=== PATIENT | male | born 1935 | race Caucasian/White ===

== ENCOUNTER 2018-05-29 14:07 | Inpatient (IN) | payer MEDICAID, MEDICARE, OTHER ==
[~2018-05-29] VITALS: Ht 165.1 cm; Wt 54.4 kg
[2018-05-29 14:10] VITALS: BP 105/47
--- NOTE | 2018-05-29 14:10 | NUR ---
PT BROUGHT TO ED BED 6 BY AMBULANCE. REPORT GIVEN TO KASHMIR KHAN RN AT BEDSIDE.
--- NOTE | 2018-05-29 14:35 | NUR ---
82 YO MALE BIB EMS FROM [facility] FOR TOE DEFORMITIES. PT DENIES N/V/D; SKIN IS INTACT EXCEPT FOR TOE DEFORMITIES TO THE 1ST,2ND AND 5TH TOE ON L FOOT AND 2ND AND 5TH TOE OF R FOOT DISCOLORATION BLACK IN COLOR WITH YELLOW TOENAILS, PINK/WARM/DRY; ALERT TO PERSON NOT PLACE OR TIME, PERRL, LUNGS CLEAR BL, BREATHING UNLABORED; HR EVEN AND REGULAR, BL PERIPHERAL PULSES PRESENT; BS ACTIVE X4, NO TENDERNESS TO PALPATION, NO HEPATOSPLENOMEGALLY PALPATED, RESONANT TO PERCUSSION; PT DENIES ANY FEVER, CP, SOB, OR COUGH AT THIS TIME; 0/10 PAIN AT THIS TIME; VSS; PATIENT POSITIONED FOR COMFORT; HOB ELEVATED; BEDRAILS UP X2; BED DOWN. Addendum: 05/29/18 at 1626 by [email or web address] PT HAS G TUBE INTACT
[2018-05-29] MEDS ORDERED: VITA1TAB44 PO (14:49)
[2018-05-29] MEDS ORDERED: METO25TA PO (14:49)
[2018-05-29] MEDS ORDERED: HUM SUBQ (14:49)
[2018-05-29] MEDS ORDERED: TERA1CAP7 PO (14:49)
[2018-05-29] MEDS ORDERED: SIMV20TA1 PO (14:49)
[2018-05-29] MEDS ORDERED: QUET100T PO (14:49)
[2018-05-29] MEDS ORDERED: LISI-420 PO (14:49)
[2018-05-29] MEDS ORDERED: ERGO500028 PO (14:49)
[2018-05-29] MEDS ORDERED: INSU100S22 SUBQ (14:49)
[2018-05-29] MEDS ORDERED: FERR325E14 GT (14:49)
[2018-05-29] MEDS ORDERED: NITR1PAT TD (14:49)
[2018-05-29] MEDS ORDERED: PANT40EC GT ×2 (14:49→20:46)
[2018-05-29] MEDS ORDERED: METF1000 PO (14:49)
[2018-05-29] MEDS ORDERED: NACL 0.9% 1,000 ML IV ONE (15:10)
[2018-05-29 16:10] LABS: EOSINOPHILS # (AUTO) 0.2 K/uL (0-0.4); HEMATOCRIT 25.3 % (36-52); HEMOGLOBIN 8.2 g/dL (12.0-18.0); MEAN CORPUSCULAR HEMOGLOBIN 27 pg (27-31); MEAN CORPUSCULAR HGB CONC 33 g/dL (33-37); MEAN CORPUSCULAR VOLUME 84.2 fL (80-94); MONOCYTES # (AUTO) 0.5 K/uL (0.8-1.0); NEUTROPHILS # (AUTO) 4.1 K/uL (1.8-7.7); PLATELET COUNT (AUTO) 284 K/uL (140-450); RED CELL DISTRIBUTION WIDTH 15.8 % (11.6-13.7); WHITE BLOOD COUNT (AUTO) 6.5 K/uL (4.8-10.8)
[2018-05-29 16:22] LABS: EOSINOPHILS % (MANUAL) 4 % (0-4); LYMPHOCYTES % (MANUAL) 22 % (20-46); MONOCYTES % (MANUAL) 8 % (5-12)
--- NOTE | 2018-05-29 16:25 | NUR ---
pt. resting comfortably in bed , pt. has g-tube intact and clean. Bed in lowest position. will continue to monitor.
[2018-05-29 16:30] LABS: SODIUM SERUM 133 mmol/L (136-145)
[2018-05-29 16:31] LABS: ANION GAP 12.9 (8-16); CARBON DIOXIDE 28.6 mmol/L (21-32); CHLORIDE 96 mmol/L (98-107); CREATININE 1.3 mg/dL (0.7-1.3); GLUCOSE 126 mg/dL (74-106); POTASSIUM 4.5 mmol/L (3.5-5.1)
[2018-05-29 16:33] LABS: UREA NITROGEN, BLOOD 79 mg/dL (7-18)
--- NOTE | 2018-05-29 16:33 | NUR ---
Denita called from lab with BUN:[id number], edil felder notified.
[2018-05-29 16:35] LABS: PROTHROMBIN TIME 10.4 secs (10.8-13.4)
[2018-05-29] MEDS ORDERED: PIPERACILLIN/TAZOBACTAM 3.375 GM in DEXTROSE 5% 50 ML IV ONE (16:50)
[2018-05-29] MEDS ORDERED: PIPERACILLIN/TAZOBACTAM 3.375 GM VIAL IV ONE (16:58)
--- NOTE | 2018-05-29 17:16 | NUR ---
LAB CALLED TO REPORT LAB VALUE OF LACTIC ACID: [id number]. ER MD HERNANDEZ NOTIFIED.
[2018-05-29 17:55] LABS: APPEARANCE,URINE CLEAR (CLEAR); BILIRUBIN,URINE NEGATIVE (NEGATIVE); BLOOD, URINE NEGATIVE (NEGATIVE); COLOR,URINE YELLOW (YELLOW); LEUKOCYTE ESTERASE ,URINE NEGATIVE (NEGATIVE); NITRITE, URINE NEGATIVE (NEGATIVE); PH,URINE 5.5 (5.0-9.0); UGLUCOSE NEGATIVE (NEGATIVE)
[2018-05-29] MEDS ORDERED: ACETAMINOPHEN 325 MG TAB PO PRN (18:10)
[2018-05-29] MEDS ORDERED: NACL 0.9% 1,000 ML IV SCH (18:10)
[2018-05-29] MEDS ORDERED: ONDANSETRON 4 MG/2 ML VIAL IVP PRN (18:10)
[2018-05-29] MEDS ORDERED: DEXTROSE 50% 50 ML SYR IVP PRN (18:10)
[2018-05-29] MEDS ORDERED: ZOLPIDEM 5 MG TAB PO PRN (18:10)
[2018-05-29] MEDS ORDERED: VANCOMYCIN PER PHARMACY MC PRN (18:10)
--- NOTE | 2018-05-29 18:26 | NUR ---
PT. RESTING COMFORTABLY IN BED, RR EVEN AND UNLABORED. WILL CONTINUE TO MONITOR. BED IN LOWEST POSITION.
--- NOTE | 2018-05-29 18:55 | NUR ---
Patient will be admitted to care of DR. GOMES . Admited to MED SURG . Will go to room 119A. Belongings list completed. Report to ANTHONY AVILES .
--- NOTE | 2018-05-29 19:10 | NUR ---
RECEIVED PATIENT LYING ON BED. RECEIVED REPORT FROM THE CHARGE NURSE. ADMISSION CARE DONE AND CARRY OUT ORDER. NO BELONGINGS REPORTED. CALL LIGHT WITHIN REACH. WILL CONTINUE TO MONITOR.
[2018-05-29] MEDS ORDERED: VANCOMYCIN 1,000 MG VIAL ONE (19:51)
[2018-05-29] MEDS: VANCOMYCIN 1GM/DEXT 5% PREMIX 200 ML IV SCH (20:06)
[2018-05-29] MEDS: BLOOD GLUCOSE MONITORING 1 DEV DEV FS SCH (20:42)
[2018-05-29] MEDS ORDERED: QUET100T GT (20:46)
[2018-05-29] MEDS ORDERED: ERGO500028 GT (20:46)
[2018-05-29] MEDS ORDERED: VITA1TAB44 GT (20:46)
[2018-05-29] MEDS ORDERED: METO25TA GT (20:46)
[2018-05-29] MEDS ORDERED: TERA1CAP7 GT (20:46)
[2018-05-29] MEDS ORDERED: LISI-420 GT (20:46)
[2018-05-29] MEDS ORDERED: METF1000 GT (20:46)
[2018-05-29] MEDS ORDERED: SIMV20TA1 GT (20:46)
[2018-05-29 20:49] LABS: FREE T4 (FREE THYROXINE) 0.95 ng/dL (0.76-1.46); MAGNESIUM 1.5 mg/dL (1.8-2.4); PHOSPHORUS 2.8 mg/dL (2.5-4.9); THYROID STIMULATING HORMONE 2.37 uIU/mL (0.34-3.74)
[2018-05-29] MEDS ORDERED: FERR220E24 GT (20:53)
[2018-05-29] MEDS ORDERED: DOCUSATE SODIUM 100 MG GELCAP PO SCH (21:00)
--- NOTE | 2018-05-29 21:00 | NUR ---
MEDICATION GIVEN . V/S TAKEN AND RECORDED. SLIDING BS TAKEN NO COVERAGE. NO S/S OF DISTRESS NOTED AT THIS TIME. CALL LIGHT WITHIN REACH. WILL CONTINUE TO MONITOR.
[2018-05-29] MEDS ORDERED: MAGN400S60 PO (21:06)
[2018-05-29] MEDS ORDERED: FLEPED RC (21:06)
[2018-05-29] MEDS ORDERED: BISA-213 RC (21:06)
[2018-05-29] MEDS ORDERED: SODIUM PHOSPHATE PEDIATRIC 67.5 ML ENEM RC PRN (21:10)
[2018-05-29] MEDS ORDERED: BISACODYL 10 MG SUPP RC PRN (21:10)
[2018-05-29] MEDS ORDERED: MAGNESIUM HYDROXIDE 2400 MG/30 ML UDC PO SCH (21:10)
[2018-05-29] MEDS ORDERED: SODIUM FERRIC GLUCONATE 125 MG in NACL 0.9% 100 ML IV SCH (21:45)
[2018-05-29] MEDS: DOCUSATE 100 MG/10 ML UDC GT SCH (21:55)
[2018-05-29] MEDS ORDERED: MAG SULF 2000 MG/WATER PREMIX 100 ML IV SCH (22:00)
[2018-05-29] MEDS ORDERED: ALBUTEROL SULFATE/IPRATROPIU 3 ML SOL IH PRN (22:10)
[2018-05-29] MEDS ORDERED: NACL 0.9% IRR 250 ML BOTTLE IR PRN (22:10)
[2018-05-29] MEDS: DEXT 5% / NACL 0.9% 500 ML IV SCH (22:59)
[2018-05-30] VITALS: BP 131/60
--- NOTE | 2018-05-30 01:05 | NUR ---
SEEN PATIENT ASLEEP ON BED. NO S/S OF DISTRESS NOTED AT THIS TIME. FALL PRECAUTION APPLIED. CALL LIGHT WITHIN REACH. WILL CONTINUE TO MONITOR.
--- NOTE | 2018-05-30 02:15 | NUR ---
KEEP PRESSURE OFF TOE WITH HEEL PROTECTOR IN PLACE. POSITIONED PATIENT IN COMFORTABLE POSITION. NO S/S OF DISTRESS NOTED AT THIS TIME. WILL CONTINUE TO MONITOR.
[2018-05-30] MEDS: DEXT 5% / NACL 0.9% 500 ML IV SCH ×2 (03:10→08:57)
--- NOTE | 2018-05-30 04:18 | NUR ---
CHECKED PATIENT ASLEEP COMFORTABLE ON BED. ALL NEEDS ATTENDED. NO S/S OF DISTRESS NOTED. CALL LIGHT WITHIN REACH. WILL CONTINUE TO MONITOR.
--- NOTE | 2018-05-30 05:22 | NUR ---
RESIDENT NOTIFIED ABOUT DRESSING CHANGE. NO ORDER MADE. HE WILL ENDORSE TO AM SHIFT RESIDENT.
[2018-05-30 06:24] LABS: BASOPHILS % (AUTO) 0.4 % (0.0-2.0); EOSINOPHILS # (AUTO) 0.2 K/uL (0-0.4); EOSINOPHILS % (AUTO) 2.3 % (0.0-4.0); HEMATOCRIT 27.1 % (36-52); HEMOGLOBIN 8.9 g/dL (12.0-18.0); LYMPHOCYTES # (AUTO) 1.1 K/uL (2.0-11.5); LYMPHOCYTES % (AUTO) 17.2 % (20.5-51.1); MEAN CORPUSCULAR HEMOGLOBIN 28 pg (27-31); MEAN CORPUSCULAR HGB CONC 33 g/dL (33-37); MEAN CORPUSCULAR VOLUME 83.4 fL (80-94); MONOCYTES # (AUTO) 0.4 K/uL (0.8-1.0); MONOCYTES % (AUTO) 6.9 % (1.7-9.3); NEUTROPHILS # (AUTO) 4.7 K/uL (1.8-7.7); NEUTROPHILS % (AUTO) 73.2 % (42.2-75.2); PLATELET COUNT (AUTO) 303 K/uL (140-450); RED BLOOD CELL COUNT(AUTO) 3.25 MIL/uL (4.20-6.10); WHITE BLOOD COUNT (AUTO) 6.5 K/uL (4.8-10.8)
--- NOTE | 2018-05-30 06:45 | NUR ---
PATIENT REFUSED FINGERSTICK.
[2018-05-30 06:53] LABS: ALBUMIN 2.7 g/dL (3.4-5.0); ANION GAP 12.8 (8-16); ASPARTATE AMINOTRANSFERASE 14 U/L (15-37); CARBON DIOXIDE 29.1 mmol/L (21-32); CHLORIDE 102 mmol/L (98-107); CHOL/HDL RATIO 3.2 (1-4.5); GLUCOSE 191 mg/dL (74-106); HDL CHOLESTEROL 33 mg/dL (40-60); LDL (CALC) 58 mg/dL (60-100); MAGNESIUM 2.8 mg/dL (1.8-2.4); PHOSPHORUS 3.2 mg/dL (2.5-4.9); POTASSIUM 4.9 mmol/L (3.5-5.1); SODIUM SERUM 139 mmol/L (136-145); TOTAL BILIRUBIN 0.3 mg/dL (0.0-1.0); TRIGLYCERIDES 68 mg/dL (30-150); UREA NITROGEN, BLOOD 57 mg/dL (7-18)
--- NOTE | 2018-05-30 07:15 | NUR ---
RECEIVED PATIENT REPORT AT BEDSIDE. PATIENT AWAKE IN BED. NO S/S OF DISTRESS. PATIENT ON ROOM AIR NO SOB. WOUNDS NOTED TO BILATERAL FEET. NO DRAINAGE NOTED. HEEL RAISERS IN PLACE. PATIENT ON TELE MONITORING. BED LOWERED WITH CALL LIGHT WITHIN REACH. WILL CONTINUE TO MONITOR
--- NOTE | 2018-05-30 07:20 | NUR ---
ENDORSEMENT GIVEN AT BEDSIDE TO AM SHIFT NURSE FOR CONTINUITY OF CARE. PATIENT IN STABLE CONDITION.
[2018-05-30 08:00] VITALS: BP 155/58
--- NOTE | 2018-05-30 08:00 | NUR ---
PATIENT BEING EVALUATED BY DR ASHTON
[2018-05-30] MEDS: BLOOD GLUCOSE MONITORING 1 DEV DEV FS SCH ×4 (08:57→20:19)
[2018-05-30] MEDS: NACL 0.9% IRR 250 ML BOTTLE IR SCH (09:00)
[2018-05-30] MEDS: NITROGLYCERIN 0.2 MG/HR PATCH TD SCH (09:00)
[2018-05-30] MEDS: SODIUM FERRIC GLUCONATE 125 MG in NACL 0.9% 100 ML IV SCH (09:01)
[2018-05-30] MEDS: DOCUSATE 100 MG/10 ML UDC GT SCH ×2 (09:02→20:07)
[2018-05-30] MEDS: FERROUS SULFATE 300 MG/5 ML UDC GT SCH ×2 (09:02→20:07)
[2018-05-30] MEDS: VIT-B COMP/VIT-C/FOLIC ACID 1 TAB GT SCH (09:02)
[2018-05-30] MEDS: QUEtiapine FUMARATE 100 MG TAB GT SCH ×2 (09:02→20:07)
[2018-05-30] MEDS: METOPROLOL 25 MG TAB GT SCH ×2 (09:03→20:07)
[2018-05-30] MEDS: TERAZOSIN 1 MG CAP GT SCH ×2 (09:03→20:08)
[2018-05-30] MEDS: FAMOTIDINE 20 MG TAB GT SCH (09:03)
[2018-05-30] MEDS: LISINOPRIL 20 MG TAB GT SCH (09:03)
[2018-05-30] MEDS: INSULIN LISPRO SLIDING SCALE 100 UNITS/ML VIAL SUBQ PRN ×4 (09:18→21:01)
--- NOTE | 2018-05-30 10:23 | NUR ---
FAXED INITIAL ER REPORT, H&P, CONSULT, PROGRESS NOTES, XRAY, MED SHEET AND ADMIT ORDER TO [facility] [phone] PHONE [phone] X [phone] RITA
--- NOTE | 2018-05-30 10:31 | NUR ---
PATIENT HAS BEEN SCREENED AND CATEGORIZED HIGH NUTRITION RISK. PATIENT WILL BE SEEN WITHIN 1-2 DAYS OF ADMISSION. 05/30/18 05/31/[address]
[2018-05-30] MEDS ORDERED: MAGNESIUM HYDROXIDE 2400 MG/30 ML UDC PO PRN (11:25)
[2018-05-30] MEDS: DEXT 5% /NACL 0.9% 1,000 ML IV SCH ×2 (11:27→20:06)
[2018-05-30] MEDS ORDERED: SODIUM PHOSPHATE 118 ML ENEM RC PRN (11:29)
[2018-05-30 12:25] LABS: FERRITIN 212 ng/mL (30-400); FOLIC ACID > 20.00 ng/mL (>3.0)
--- NOTE | 2018-05-30 12:28 | NUR ---
WOUND CARE NOTE: PT. SEEN BY PODIATRY THIS AM, WOUND TREATMENT DONE ORDERED, ENDORSE TO PRIMARY RN. LEFT HALLUX ,2ND AND 5TH TOES AND RIGHT 2ND TOE GANGRENE NOTED. Addendum: 05/30/18 at 1238 by Jeanne Bridges RN (Grace) Will continue to follow Dr. Hale order: Wound care to change dressings daily and apply betadine on left gangrenous toes and on right 2nd toe wound with gauze and light augie. Addendum: 06/02/18 at 1116 by Jeanne Bridges RN (Grace) LATE ENTRY FOR 05/30/2018, SKIN ASSESSMENT NO REDNESS, NO S/S PRESSURE INJURY NOTICE AT THIS TIME.
--- NOTE | 2018-05-30 15:05 | NUR ---
PATIENT ASLEEP IN BED. NO S/S OF DISTRESS NOTED
--- NOTE | 2018-05-30 15:13 | NUR ---
05/30/18 RD INITIAL ASSESSMENT COMPLETED PLEASE REFER TO NUTRITION ASSESSMENT UNDER CARE ACTIVITY FOR ESTIMATED NUTRITIONAL NEEDS. 1. WHEN/IF MEDICALLY STABLE TO BEGIN NUTRITION, CONSIDER ADVANCE TF TOLERATED TO GLUCERNA 1.2 @GOAL RATE 70ML/H WITH 150ML H2O FLUSH Q4H -THIS PROVIDES 2016 KCAL (100% ESTIMATED ENERGY NEEDS), 100 GM PROTEIN (100% ESTIMATED PROTEIN NEEDS), AND 1952.4 ML FLUID (100% ESTIMATED FLUID NEEDS) 2. RECOMMEND VITAMIN C 0429-1437 MG/D TO ASSIST WITH WOUND HEALING 3. RECOMMEND 1 PKT ROSE QD TO ASSIST WITH WOUND HEALING 4. RD TO FOLLOW-UP 2-3 DAYS, HIGH RISK JULIANNE MAE RD
[2018-05-30 16:00] VITALS: BP 157/65
--- NOTE | 2018-05-30 19:45 | NUR ---
PATIENT REPORT GIVEN AT BEDSIDE. PATIENT ENDORSED IN STABLE CONDITION
--- NOTE | 2018-05-30 19:50 | NUR ---
RECEIVED PATIENT LYING COMFORTABLE ON BED. FALL PRECAUTION APPLIED .THERABOOT IN PLACE IN BLE . LEFT FOOT WRAP WITH KERLIX DRESSING ORDERED. HEELS OFF LOAD FOR PRESSURE. G-T IN PLACE FOR MEDICATION ACCESS. BED ALARM ON. CALL LIGHT WITHIN REACH.
[2018-05-30] MEDS: VANCOMYCIN 1GM/DEXT 5% PREMIX 200 ML IV SCH (20:05)
[2018-05-30] MEDS: SIMVASTATIN 20 MG TAB GT SCH (20:08)
[2018-05-30] MEDS: INSULIN LANTUS 100 UNITS/ML 10 ML VIAL SUBQ SCH (21:00)
[2018-05-30] MEDS ORDERED: NON-FORMULARY ITEM (Insulin Glargine,Hum.rec.anlog (Lantus Solostar) 10 UNIT) SUBQ SCH (21:00)
--- NOTE | 2018-05-30 21:00 | NUR ---
BS TAKEN AND RECORDED. INSULIN GIVEN ORDERED. MEDICATION GIVEN THROUGH G- TUBE AND PLACE IN SEMI POSITION. MEDICATION TOLERATED WELL. NO S/ S OF DISTRESS NOTED AT THIS TIME. CALL LIGHT WITHIN REACH.WILL CONTINUE TO MONITOR.
[2018-05-31] VITALS: BP 149/65
--- NOTE | 2018-05-31 | NUR ---
V/S TAKEN AND RECORDED. PATIENT CLEANED AND REPOSITIONED TO HIS SIDE TO MAINTAIN SKIN INTEGRITY. OFF LOAD FOOT FOR PRESSURE. NO S/ S OF DISTRESS NOTED AT THIS TIME. CALL LIGHT WITHIN REACH. WILL CONTINUE TO MONITOR.
--- NOTE | 2018-05-31 02:30 | NUR ---
REPOSITIONED PATIENT AND PLACE IN COMFORTABLE POSITION. FALL PRECAUTION APPLIED. PATIENT BACK TO SLEEP. CALL LIGHT WITHIN REACH.
[2018-05-31] MEDS: NACL 0.9% 1,000 ML IV SCH (05:46)
[2018-05-31] MEDS: INSULIN LISPRO SLIDING SCALE 100 UNITS/ML VIAL SUBQ PRN ×3 (06:05→22:02)
[2018-05-31] MEDS: BLOOD GLUCOSE MONITORING 1 DEV DEV FS SCH ×4 (06:22→22:00)
--- NOTE | 2018-05-31 07:15 | NUR ---
ENDORSEMENT GIVEN AT BEDSIDE TO AM SHIFT NURSE FOR CONTINUITY OF CARE. PATIENT IN STABLE CONDITION.
--- NOTE | 2018-05-31 07:15 | NUR ---
RECEIVED PATIENT REPORT AT BEDSIDE. PATIENT AWAKE WITH NO S/S OF DISTRESS. PATIENT ON ROOM AIR. WOUND DRESSING NOTED TO THE LOWER EXTREMITY. DRESSING CLEAN DRY AND INTACT. HEEL RAISERS IN PLACE. G-TUBE FEEDING IN PLACE WITH TUBE FEEDING RUNNING. BED LOWERED WITH CALL LIGHT WITHIN REACH. WILL CONTINUE TO MONITOR
[2018-05-31 07:38] VITALS: BP 150/63
[2018-05-31] MEDS: DOCUSATE 100 MG/10 ML UDC GT SCH ×2 (08:08→21:54)
[2018-05-31] MEDS: FERROUS SULFATE 300 MG/5 ML UDC GT SCH ×2 (08:08→21:53)
[2018-05-31] MEDS: VIT-B COMP/VIT-C/FOLIC ACID 1 TAB GT SCH (08:08)
[2018-05-31] MEDS: QUEtiapine FUMARATE 100 MG TAB GT SCH ×2 (08:09→21:56)
[2018-05-31] MEDS: TERAZOSIN 1 MG CAP GT SCH ×2 (08:09→21:53)
[2018-05-31] MEDS: LISINOPRIL 20 MG TAB GT SCH (08:10)
[2018-05-31] MEDS: METOPROLOL 25 MG TAB GT SCH ×2 (08:10→21:55)
[2018-05-31] MEDS: FAMOTIDINE 20 MG TAB GT SCH (08:10)
--- NOTE | 2018-05-31 08:15 | NUR ---
SCHEDULED MEDICATIONS ADMINISTERED. NO RESIDUALS NOTED. PATIENT TOLERATED WELL. WILL CONTINUE TO MONITOR
[2018-05-31] MEDS: NITROGLYCERIN 0.2 MG/HR PATCH TD SCH (09:00)
[2018-05-31] MEDS: NACL 0.9% IRR 250 ML BOTTLE IR SCH (09:35)
[2018-05-31] MEDS: SODIUM FERRIC GLUCONATE 125 MG in NACL 0.9% 100 ML IV SCH (09:36)
[2018-05-31 11:48] VITALS: BP 149/62
--- NOTE | 2018-05-31 11:49 | NUR ---
PATIENT AWAKE IN BED. NO S/S OF DISTRESS NOTED. PATIENT'S DAUGHTER PRESENT AT BEDSIDE
[2018-05-31] MEDS ORDERED: HYDROcodone/APAP 5/325 MG 1 TAB TAB PO PRN (15:55)
[2018-05-31 16:00] VITALS: BP 130/50
[2018-05-31] MEDS: CHLORHEXADINE GLUC 2% CLOTH TP SCH (16:00)
[2018-05-31] MEDS: MUPIROCIN CA NASAL 2% 1GM TUBE NS SCH (17:05)
--- NOTE | 2018-05-31 18:46 | NUR ---
PATIENT ASLEEP IN BED. NO S/S OF DISTRESS NOTED
--- NOTE | 2018-05-31 19:20 | NUR ---
PATIENT REPORT GIVEN AT BEDSIDE. PATIENT ENDORSED IN STABLE CONDITION
--- NOTE | 2018-05-31 19:24 | NUR ---
RECEIVED PT FROM JOLIE RN PT RESTING ON BED GREEK SPEAKER AAOX1 IV ON LEFT FA INFUSIGN WELL G TUBE FEEDING WELL TOLERATED REPOSITIONED NOT DISRESS NOTED
[2018-05-31] MEDS: VANCOMYCIN 1GM/DEXT 5% PREMIX 200 ML IV SCH (19:44)
[2018-05-31 20:00] VITALS: BP 148/54
--- NOTE | 2018-05-31 21:30 | NUR ---
BLOOD SUGAR TEST 177 COVERAGE WITH 2 UNITS SUBQ HUMALO FOLLOW ROTOCOL
[2018-05-31] MEDS: SIMVASTATIN 20 MG TAB GT SCH (21:55)
[2018-05-31] MEDS: INSULIN LANTUS 100 UNITS/ML 10 ML VIAL SUBQ SCH (22:00)
[2018-06-01] VITALS: BP 153/60
--- NOTE | 2018-06-01 | NUR ---
SPONGE BATH GIVEN LINEN CHANGED REPOSITIONED Q2H NOT DISTRESS NOTED
--- NOTE | 2018-06-01 03:00 | NUR ---
A NEW IV ON RT FA IS INSERTED GAUGE #22 IV FLUIDS INFUSING WELL
--- NOTE | 2018-06-01 05:00 | NUR ---
PT HAS A BIG BM ANOTHER SPONGE BATH GIVEN LINEN CHANGED G TUBE FEEDING WEL TOLERATED IV ON RT FA INFUSING WELL
[2018-06-01] MEDS: NACL 0.9% 1,000 ML IV SCH ×2 (05:25→16:41)
[2018-06-01] MEDS: BLOOD GLUCOSE MONITORING 1 DEV DEV FS SCH ×4 (05:58→21:00)
--- NOTE | 2018-06-01 05:59 | NUR ---
BLOOD SUGAR TEST 117
--- NOTE | 2018-06-01 06:38 | NUR ---
PT BEDBOUND NOT DISTRESS NOTED IV INFUSING WELL ON RT FA AND G TUBE FEEDING WELL TOLERATED ZERO RESIDUAL AT THIS TIME
[2018-06-01 07:37] VITALS: BP 152/71
[2018-06-01 07:37] LABS: BASOPHILS % (AUTO) 0.3 % (0.0-2.0); EOSINOPHILS # (AUTO) 0.1 K/uL (0-0.4); EOSINOPHILS % (AUTO) 1.7 % (0.0-4.0); HEMOGLOBIN 9.1 g/dL (12.0-18.0); LYMPHOCYTES # (AUTO) 1.3 K/uL (2.0-11.5); MEAN CORPUSCULAR HEMOGLOBIN 27 pg (27-31); MEAN CORPUSCULAR HGB CONC 33 g/dL (33-37); MONOCYTES # (AUTO) 0.5 K/uL (0.8-1.0); NEUTROPHILS # (AUTO) 4.6 K/uL (1.8-7.7); PLATELET COUNT (AUTO) 297 K/uL (140-450); RED BLOOD CELL COUNT(AUTO) 3.33 MIL/uL (4.20-6.10); WHITE BLOOD COUNT (AUTO) 6.6 K/uL (4.8-10.8)
[2018-06-01 07:57] LABS: CARBON DIOXIDE 29.5 mmol/L (21-32); CHLORIDE 105 mmol/L (98-107); CREATININE 0.8 mg/dL (0.7-1.3); GLUCOSE 160 mg/dL (74-106); POTASSIUM 4.5 mmol/L (3.5-5.1); SODIUM SERUM 141 mmol/L (136-145); UREA NITROGEN, BLOOD 14 mg/dL (7-18)
[2018-06-01 08:01] LABS: MAGNESIUM 1.5 mg/dL (1.8-2.4); PHOSPHORUS 3.1 mg/dL (2.5-4.9)
[2018-06-01] MEDS: VIT-B COMP/VIT-C/FOLIC ACID 1 TAB GT SCH (08:50)
[2018-06-01] MEDS: FAMOTIDINE 20 MG TAB GT SCH (08:50)
[2018-06-01] MEDS: FERROUS SULFATE 300 MG/5 ML UDC GT SCH ×2 (08:51→22:05)
[2018-06-01] MEDS: METOPROLOL 25 MG TAB GT SCH ×2 (08:51→22:04)
[2018-06-01] MEDS: LISINOPRIL 20 MG TAB GT SCH (08:51)
[2018-06-01] MEDS: TERAZOSIN 1 MG CAP GT SCH ×2 (08:51→22:05)
[2018-06-01] MEDS: QUEtiapine FUMARATE 100 MG TAB GT SCH ×2 (08:51→22:04)
--- NOTE | 2018-06-01 08:51 | NUR ---
SCHEDULED MEDICATIONS ADMINISTERED. NO RESIDUALS NOTED. PATIENT TOLERATED WELL. WILL CONTINUE TO MONITOR
[2018-06-01] MEDS: SODIUM FERRIC GLUCONATE 125 MG in NACL 0.9% 100 ML IV SCH (08:53)
[2018-06-01] MEDS: NITROGLYCERIN 0.2 MG/HR PATCH TD SCH (09:00)
[2018-06-01] MEDS: DOCUSATE 100 MG/10 ML UDC GT SCH ×2 (09:00→22:05)
[2018-06-01] MEDS: NACL 0.9% IRR 250 ML BOTTLE IR SCH (09:25)
[2018-06-01] MEDS ORDERED: MAG SULF 2000 MG/WATER PREMIX 50 ML IV ONE (09:35)
[2018-06-01] MEDS ORDERED: HYDROcodone/APAP 5/325 MG 1 TAB TAB PO SCH (09:44)
--- NOTE | 2018-06-01 09:48 | NUR ---
PATIENT GIVEN BED BATH. PATIENT TURNED AND REPOSITIONED FOR COMFORT. PATIENT TOLERATED WELL
[2018-06-01] MEDS: MAGNESIUM SULFATE 1GM in DEXTROSE 5% 100 ML PREMIX IV SCH ×2 (10:37→11:48)
[2018-06-01] MEDS: HYDROcodone/APAP 5/325 MG 1 TAB TAB PO SCH ×2 (12:00→17:54)
[2018-06-01] MEDS: INSULIN LISPRO SLIDING SCALE 100 UNITS/ML VIAL SUBQ PRN ×2 (12:29→16:52)
[2018-06-01] MEDS ORDERED: VANCOMYCIN 1GM/DEXT 5% PREMIX 200 ML IV SCH (14:00)
[2018-06-01 16:00] VITALS: BP 149/57
--- NOTE | 2018-06-01 16:00 | NUR ---
SPOKE TO REMINGTON AT [facility]. PER REMINGTON, PATIENT CAN GO TO ROOM 111A
[2018-06-01] MEDS: MUPIROCIN CA NASAL 2% 1GM TUBE NS SCH (16:46)
[2018-06-01] MEDS: CHLORHEXADINE GLUC 2% CLOTH TP SCH (16:52)
--- NOTE | 2018-06-01 16:53 | NUR ---
CALLED [facility] FOR TRANSPORT AUTHORIZATION ,GAVE ME A NUMBER TO CONTACT WITH [facility] [phone] SPOKE WITH THE DISPATCHER AND AIRPORT SCREENER TIME WILL BE WITH IN 2 HOURS.
--- NOTE | 2018-06-01 19:13 | NUR ---
PATIENT REPORT GIVEN AT BEDSIDE. PATIENT ENDORSED IN STABLE CONDITION
--- NOTE | 2018-06-01 19:14 | NUR ---
REPORT RECEIVED FROM AM NURSE AT BEDSIDE. PT IN STABLE CONDITION. AAOX1. INTRODUCED SELF TO PT AND BOARD UPDATED. IV SITE PATENT AND INTACT. SKIN WARM, DRY, AND NOT INTACT DUE TO CELLULITIS TO LOWER BLE. PT TO BE DISCHARGED BY 1900. DC PAPERWORK ALL DONE BY AM NURSE. COSIGNED ALL PAPERWORK. BED LOCKED IN LOW POSITION. CALL MARTINEZ WITHIN REACH.
--- NOTE | 2018-06-01 19:37 | NUR ---
CALLED [facility] AGAIN TO CHECK THE CONSULTING SENIOR PRACTICE DIRECTOR TIME THE DISPATCHER WILL CALL BACK
--- NOTE | 2018-06-01 20:30 | NUR ---
[facility] CALLED FOR PT PICKUP. PICKUP TIME ORIGINALLY 1900. NEW PICKUP TIME 2300.
--- NOTE | 2018-06-01 22:00 | NUR ---
[facility] CALLED. STATED THAT THEY WILL NOT BE ABLE TO INFORMATION BROKER PT. TOLD TO CALL THEM AT 0600 TO ATTEMPT THE TRANSFER AGAIN.
[2018-06-01] MEDS: SIMVASTATIN 20 MG TAB GT SCH (22:04)
--- NOTE | 2018-06-01 22:05 | NUR ---
COLACE, FERROUS SULFATE, TERAZOSIN, LOPRESSOR, SEROQUEL, AND ZOCOR GIVEN THROUGH GTUBE. BS 146. NO HUMALOG COVERAGE NEEDED. LANTUS 10 UNITS GIVEN. PT TOLERATED WELL.
[2018-06-01] MEDS: INSULIN LANTUS 100 UNITS/ML 10 ML VIAL SUBQ SCH (22:07)
--- NOTE | 2018-06-01 22:15 | NUR ---
[facility] CALLED AND TALKED W/NAA CRUZ PT'S NURSE AND TOLD THEY CAN NOT COME AND MEDICAL ASST PT TO NIGHT.INFORMED DIXON CRUZ FLUTE GRINDER.SHE IS WORKING ON THAT.
--- NOTE | 2018-06-01 22:19 | NUR ---
TALKED TO [facility] [phone] TALKED TO DAVID, HE SAID UNABLE TO ORTHODONTIC TREATMENT COORDINATOR PT AT THIS TIME DUE TO DISPATCH DIFFICULTY WITH AFFILIATE AND WILL NEED TO FOLLOW UP TOMORROW AROUND 0600
[2018-06-02] VITALS: BP 157/65
[2018-06-02] MEDS: HYDROcodone/APAP 5/325 MG 1 TAB TAB PO SCH ×2 (00:12→05:21)
--- NOTE | 2018-06-02 00:12 | NUR ---
NORCO GIVEN. PT TOLERATED WELL. NEW FEEDING PLACED. ROSE MIXED WITH WATER AND GIVE THROUGH GTUBE. WILL CONTINUE TO MONITOR. Addendum: 06/02/18 at 0333 by Farooq Yee RN RESIDUAL OF 60ML. FEEDING TO BE CONTINUED.
--- NOTE | 2018-06-02 02:45 | NUR ---
PT SLEEPING COMFORTABLY IN BED WITH HEAD AND FACE COVERED. NO S/S OF DISTRESS NOTED. WILL CONTINUE TO MONITOR.
[2018-06-02] MEDS: NACL 0.9% 1,000 ML IV SCH (04:11)
[2018-06-02] MEDS: BLOOD GLUCOSE MONITORING 1 DEV DEV FS SCH (05:20)
--- NOTE | 2018-06-02 05:21 | NUR ---
NORCO GIVEN. PT TOLERATED WELL. BS 150. NO INSULIN COVERAGE NEEDED.
--- NOTE | 2018-06-02 06:00 | NUR ---
CALLED [facility] AT [phone]. TALKED TO SHY AND ANOTHER LAMP CLEANER. BOTH SAID THAT THE TRANSPORT VEHICLE IS [facility] IS SETUP TO PICKUP AT 1000AM ON 06/02/18. BOTH CALLED TO VERIFY AND LEFT ME ON HOLD FOR OVER 10 MINUTES.
[2018-06-02 06:17] LABS: BASOPHILS % (AUTO) 0.2 % (0.0-2.0); EOSINOPHILS # (AUTO) 0.1 K/uL (0-0.4); EOSINOPHILS % (AUTO) 2.4 % (0.0-4.0); HEMATOCRIT 27.7 % (36-52); LYMPHOCYTES # (AUTO) 1.2 K/uL (2.0-11.5); LYMPHOCYTES % (AUTO) 22.5 % (20.5-51.1); MEAN CORPUSCULAR HEMOGLOBIN 28 pg (27-31); MEAN CORPUSCULAR HGB CONC 33 g/dL (33-37); MEAN CORPUSCULAR VOLUME 85.1 fL (80-94); MONOCYTES # (AUTO) 0.4 K/uL (0.8-1.0); MONOCYTES % (AUTO) 8.4 % (1.7-9.3); NEUTROPHILS # (AUTO) 3.5 K/uL (1.8-7.7); NEUTROPHILS % (AUTO) 66.5 % (42.2-75.2); PLATELET COUNT (AUTO) 281 K/uL (140-450); RED BLOOD CELL COUNT(AUTO) 3.25 MIL/uL (4.20-6.10); WHITE BLOOD COUNT (AUTO) 5.2 K/uL (4.8-10.8)
[2018-06-02 06:55] LABS: ANION GAP 10.4 (8-16); CARBON DIOXIDE 30.4 mmol/L (21-32); CHLORIDE 104 mmol/L (98-107); GLUCOSE 164 mg/dL (74-106); POTASSIUM 4.8 mmol/L (3.5-5.1); SODIUM SERUM 140 mmol/L (136-145); UREA NITROGEN, BLOOD 21 mg/dL (7-18)
--- NOTE | 2018-06-02 07:00 | NUR ---
REPORT GIVEN TO AM NURSE AT BEDSIDE. PT IN STABLE CONDITION. ENDORSED TRANSFER OF PT.
--- NOTE | 2018-06-02 07:01 | NUR ---
RECEIVED REPORT FROM ELECTRO MECHANICAL DESIGNER NURSE AT BEDSIDE FOR CONTINUITY OF CARE. PT IS TO GO BACK TO [facility] YESTERDAY BUT TRANSPORTATION ISSUES. WILL BE SCHEDULED TO LEAVE TODAY. PT IS AOX1 OR 2. BEDBOUND. PT HAS A SLIGHT COUGH, NON PRODUCTIVE. SKIN -BILATERAL FEET ESCHAR. PICTURES TAKEN. GTUBE- 70ML/HR, WATER FLUSH 100ML Q 4H. IV ON R WRIST 22G NS AT 60ML. V/S WITHIN NORMAL RANGE. BP SLIGHTLY ELEVATED. D/C IS COMPLETE. REPORT GIVEN TO FACILITY. JUST WAITING FOR TRANSPORT SET UP. WILL CONTINUE TO MONITOR PT.
[2018-06-02] MEDS ORDERED: CHLO118S2 TP (07:58)
[2018-06-02] MEDS ORDERED: BACTNA NS (07:58)
[2018-06-02 08:00] VITALS: BP 166/67
--- NOTE | 2018-06-02 08:46 | NUR ---
PER FAX OF 05/30/18 FROM RITA Moya RN FROM [facility] ADMIT OF 05/29/18 APPROVED PER DRG. NRD 06/05/18 TO INCLUDE UPDATED PROGRESS NOTE FOR NRD DOS. DO NOT FAX DAILY CLINICAL DOCUMENTS/REVIEW. FAX D/C SUMMARY UPON DISCHARGE. RITA [phone] EXT [phone]
[2018-06-02] MEDS: DOCUSATE 100 MG/10 ML UDC GT SCH (09:30)
[2018-06-02] MEDS: FERROUS SULFATE 300 MG/5 ML UDC GT SCH (09:30)
--- NOTE | 2018-06-02 09:30 | NUR ---
SPOKE TO DR. CHU, AND REMIND HIM OF DR. ASHTON'S WOUND ORDERS TO INCLUDING TO DISCHARGE INSTRUCTIONS.
[2018-06-02] MEDS: VIT-B COMP/VIT-C/FOLIC ACID 1 TAB GT SCH (09:31)
[2018-06-02] MEDS: QUEtiapine FUMARATE 100 MG TAB GT SCH (09:31)
[2018-06-02] MEDS: FAMOTIDINE 20 MG TAB GT SCH (09:31)
[2018-06-02] MEDS: METOPROLOL 25 MG TAB GT SCH (09:31)
[2018-06-02] MEDS: TERAZOSIN 1 MG CAP GT SCH (09:31)
[2018-06-02] MEDS: LISINOPRIL 20 MG TAB GT SCH (09:32)
[2018-06-02] MEDS: NITROGLYCERIN 0.2 MG/HR PATCH TD SCH (09:33)
[2018-06-02] MEDS: SODIUM FERRIC GLUCONATE 125 MG in NACL 0.9% 100 ML IV SCH (09:33)
[2018-06-02] MEDS: NACL 0.9% IRR 250 ML BOTTLE IR SCH (09:34)
--- NOTE | 2018-06-02 09:59 | NUR ---
ADMINISTERED MORNING MEDS VIA GTUBE. CHECKED FOR PLACEMENT, RESIDUAL- 10ML, AND PATENCY. PT TOLERATED WELL. TOTAL FLUIDS 240ML. [facility] CALLED. WILL PRODUCTION DISPATCHER PT IN 10 MIN. D/C'D TUBE FEEDING, D/C'D IV, CANNULA INTACT. NO BLEEDING NOTED. CLEANED AND RE DRESSED THE GTUBE SITE. CALLED [facility] TO CHANGE PT FOR TRANSPORT. CALLED [facility] AND NOTIFIED HER OF PT'S TRANSPORT. WILL AWAIT TRANSPORTER.
--- NOTE | 2018-06-02 10:20 | NUR ---
REMOVED ALL ID BANDS. TRANSPORT GOWN AND BLANKETS ON. READY FOR TRANSPORT. WILL AWAIT [facility].
--- NOTE | 2018-06-02 10:35 | NUR ---
PT [place] [facility] PT WILL BE GOING TO [facility]. ALL REPORT HAS BEEN GIVEN PER DIE CAST PATTERNMAKER NURSE. PT IS IN STABLE CONDITION.
--- NOTE | 2018-06-03 08:04 | NUR ---
FAXED PROGRESS NOTE AND DISCHARGE SUMMARY TO [facility] [phone]
[2018-06-04] MEDS ORDERED: ERGOCALCIFEROL 50,000 IU SGL PO SCH (09:00)
[2018-06-07 15:25] LABS: TRANSFERRIN 146 mg/dL (200-370)
== END 2018-06-02 10:35 | DRG 383 ==
LOC: MED 14:07 → MMU 18:10 → MTU 19:09
PROVIDERS: ADMIT General Practice; ATTEND General Practice
DX: L03.116 Cellulitis of left lower limb (principal); E43 Unspecified severe protein-calorie malnutrition; I96 Gangrene, not elsewhere classified; J96.10 Chronic respiratory failure, unspecified whether with hypoxia or hypercapnia; R13.10 Dysphagia, unspecified; E11.21 Type 2 diabetes mellitus with diabetic nephropathy; F03.90 Unspecified dementia, unspecified severity, without behavioral disturbance, psychotic disturbance, mood disturbance, and anxiety; E11.65 Type 2 diabetes mellitus with hyperglycemia; E87.8 Other disorders of electrolyte and fluid balance, not elsewhere classified; E86.0 Dehydration; D64.9 Anemia, unspecified; E87.1 Hypo-osmolality and hyponatremia; I25.10 Atherosclerotic heart disease of native coronary artery without angina pectoris; K21.9 Gastro-esophageal reflux disease without esophagitis; L03.115 Cellulitis of right lower limb; E11.52 Type 2 diabetes mellitus with diabetic peripheral angiopathy with gangrene; I12.9 Hypertensive chronic kidney disease with stage 1 through stage 4 chronic kidney disease, or unspecified chronic kidney disease; N18.9 Chronic kidney disease, unspecified; L97.519 Non-pressure chronic ulcer of other part of right foot with unspecified severity; E83.41 Hypermagnesemia; Z93.1 Gastrostomy status; Z68.20 Body mass index [BMI] 20.0-20.9, adult; Z79.4 Long term (current) use of insulin; Z79.899 Other long term (current) drug therapy
CPT/HCPCS: 36415; 36600; 71045; 73630; 73660; 80048; 80053; 80202; 81003; 82150; 82607; 82728; 82746; 82803; 82948; 83036; 83540; 83605; 83690; 83735; 83880; 84100; 84439; 84443; 84484; 85025; 85045; 85610; 85651; 85730; 86140; 87040; 87081; 87086; 93005; 93970; 96361; 96365; 99285; J1815; J2543; J2916; J3370; J3475; J7030; J7042; J7060; Q0092